=== PATIENT | male | born 1955 | race Caucasian/White ===

== ENCOUNTER → 2017-10-18 | Outpatient (REF) ==
[~2017-10-18] MED LIST: ACET-2031 PO; LACT1CAP6 PO; METF-410 PO; OMEP-114 PO; [UNRECOGNIZED DRUG - CODE] PO
--- NOTE | 2017-10-18 17:08 | RADIOLOGY IMAGING REPORT ---
[place] [facility] [place] NAME: Chapo Ceron : 1955 MR: [id number] V: [id number] EXAM DATE: ORDERING PHYSICIAN: SERJIO ARNETT TECHNOLOGIST: Location: [facility] - [place] Patient: Chapo Ceron : 1955 Visit/Account:[id number] Date of Sevice: 10/18/2017 CAROTID HISTORY: Multiple strokes COMPARISON: None. FINDINGS: Grayscale, duplex and color Doppler interrogation of the extracranial carotid and vertebral arteries was performed bilateral. On the right, peak systolic velocities within the common and internal carotid arteries are 118 and 85 .5 cm/sec respectively. There is mild intimal thickening in the right common carotid artery right ca rotid bulb. Antegrade flow within the common, internal and external carotid arteries as well as vert ebral artery. ICA/CCA ratio 0.7. On the left, peak systolic velocities within the common and internal carotid arteries are 111 and 97 cm/sec respectively. There is mild intimal thickening left common carotid artery left carotid bulb. Antegrade flow within the common, internal and external carotid arteries as well as vertebral artery . ICA/CCA ratio 1. IMPRESSION: There is a mild amount of intimal thickening in the common carotid arteries and carotid bulbs althoug h no hemodynamically significant lesions identified Velocity criteria are extrapolated from diameter data as defined by the Society of Radiologists in Ul trasound Consensus Conference Radiology 2003; 229;340-346 Report Dictated By: Dona Parish MD at 10/18/2017 4:41 PM Report E-Signed By: Dona Parish MD at 10/18/2017 4:51 PM WSN:[id number]
--- NOTE | 2017-10-19 17:34 | RADIOLOGY IMAGING REPORT ---
FACILITY: [facility] PATIENT NAME: BRYANT GANT : [id number] MR: [id number] V: [id number] EXAM DATE: ORDERING PHYSICIAN: SERJIO ARNETT TECHNOLOGIST: Kinga Gong EXAMINATION:TWO-DIMENSIONAL ECHOCARDIOGRAPH REASON: MULTIPLE STROKES AND OTHER CARDIO VASCULAR EVENTS. 2D Measurements (normal values in centimeters) LV endLV endRV endVent.LV PostAorticLeftPercent DiastolicSystolicDiastolicSeptumWallRootAtriumShortening (3.5-5.7)(0.9-2.6)(0.6-1.1)(0.6-1.1)(2.0-3.7)(1.9-4.0)(25-35%) [id number] STROKE VOLUME: 36ml ESTIMATED EJECTION FRACTION: 64% PARASTERNAL LONG AXIS: Overall left ventricular systolic function does appear to be normal. No specific wall motion abnormalities are noted. Chamber sizes appear to be normal. Aortic valve and mitral valve both appear to open normally. PARASTERNAL SHORT AXIS: Overall left ventricular function again appears to be normal. No specific wall motion abnormalities are noted. The aortic valve appears to be trileaflet in configuration. Trace of pulmonic insufficiency is noted. Color examination of the aortic valve was unremarkable. APICAL FOUR AND TWO CHAMBER: Trace amount of tricuspid insufficiency and mitral insufficiency is noted. The left ventricular systolic function appears to be normal. Aortic valve area and mitral area both measure within normal ranges of 2.4 and 2.6cm2 respectively. Left atrial right atrial volume is measured within normal range of 12 and 13ml/2. The tricuspid regurgitation Vmax measured 2.77m/sec with an estimated right atrial pressure of 3mm Hg. The TAPSE is measured within normal range of 2.4 indicating normal right ventricular function. Agitated saline bubble contrast study was done. No atrioseptal or ventriculoseptal defects were appreciated. No thrombi are noted in any of the chambers but the left atrial appendage is not seen. SUBCOSTAL VIEW: No pericardial effusion was noted. No atrioseptal or ventriculoseptal defects were noted. Doppler examination of the mitral valve and diastole does reveal the A wave > E wave. OVERALL IMPRESSION: 1. Normal left ventricular ejection fraction 64% with Grade 1/ 4 decrease in diastolic function. 2. Normal chamber sizes. 3. Trileaflet aortic valve with no abnormalities. 4. A trace of mitral, tricuspid and pulmonic insufficiency with normal right ventricular systolic pressures. 5. No atrioseptal or ventriculoseptal defects were noted and an agitated saline bubble contrast study was done. 6. No thrombi were noted in any of the chambers but the left atrial appendage was not seen. Dictated by: Melanie Coats M.D. on 10/18/2017 at 21:29 Transcribed by: CHIKI on 10/19/2017 at 14:31 Approved by: Melanie Coats M.D. on 10/19/2017 at 17:33 [facility]
== END ==
LOC: US 01:00
PROVIDERS: ATTEND Family Medicine
DX: E11.9 Type 2 diabetes mellitus without complications (principal); Z86.73 Personal history of transient ischemic attack (TIA), and cerebral infarction without residual deficits
CPT/HCPCS: 93306; 93880

== ENCOUNTER 2019-03-30 12:30 | Emergency (ER) | payer BC, MEDICARE ==
[~2019-03-30 12:30] MED LIST changes: -METF-410 PO; +METF-450 PO; +[UNRECOGNIZED DRUG - CODE] PO; -[UNRECOGNIZED DRUG - CODE] PO
--- NOTE | 2019-03-30 12:33 | ER Report ---
History and Physical Time Seen By MD: 12:26 HPI/ROS CHIEF COMPLAINT: left sided numbness HISTORY OF PRESENT ILLNESS: PT states that at 11 am he started with left sided numbness. Feels it on side of his face and left arm and leg. Pt has no weakness. Pt also feels off balance and dizzy. Pts gait is normal. Pt states he had a cva 2 years ago but denies ever having any weakness with prior stroke. PT is not on an aspirin or any other blood thinner. Pt does states he has DM . no sob. no nausa. no headache REVIEW OF SYSTEMS: Constitutional: No fever, no chills. Eyes: No discharge. ENT: No sore throat. Cardiovascular: No chest pain, no palpitations. Respiratory: No cough, no shortness of breath. Gastrointestinal: No abdominal pain, no vomiting. Genitourinary: No hematuria. Musculoskeletal: No back pain. Skin: No rashes. Neurological: No headache. Left sided numbness Allergies: Coded Allergies: No Known Drug Allergies (Unverified , 07/06/15) Home Meds Reported Medications Lactobacillus Combination No.4 (PROBIOTIC) 1 Each Capsule, 1 EACH PO QDAY, CAPSULE 07/17/15 Omeprazole (PRILOSEC) 20 Mg Capsule.dr, 1 TAB PO QDAY, TAB 07/17/15 Acetaminophen (ACETAMINOPHEN) 325 Mg Tablet, 325 MG PO PRN PRN for PAIN, TAB 07/06/15 Metformin Hcl (METFORMIN HCL) 500 Mg Tablet, 2 TAB PO QDAY, TAB 07/06/15 Past Medical/Surgical History Pmhx; cva, gerd, dm Hx Smoking: Yes (1/2 ppd x40+yrs) Smoking Status: Current: Every Day Smoker Hx Alcohol Use: Yes Constitutional Vital Sign - Last 24 Hours 03/30/19 03/30/19 03/30/19 03/30/19 12:34 12:47 13:00 13:30 Temp 98.2 Pulse 93 68 59 Resp 18 7 11 B/P (MAP) 151/88 138/77 (97) 126/74 (91) 119/69 (86) Pulse Ox 92 88 91 O2 Delivery Room Air Physical Exam General Appearance: The patient is alert, has no immediate need for airway protection and no signs of toxicity. Eyes: Pupils equal and round no pallor or injection, EOMI ENT: no pharyngeal erythema or exudates, Mucous membranes are moist, TM are nl b/l Respiratory: There are no retractions, lungs are clear to auscultation. Cardiovascular: Regular rate and rhythm. pulses are equal and symmetrical Gastrointestinal: Abdomen is soft and non tender, no masses, bowel sounds normal, no guarding, no rigidity or rebound Neurological: Cranial nerves II-XII grossly intact, no rmotor loss or sensory loss; upper and lower strength 5/5. No pronator drift or dysmetria Skin: Warm and dry, no rashes. Musculoskeletal: Neck is supple non tender, no vertebral tenderness Extremities are nontender, nonswollen and have full range of motion. NIH Stroke Scale: Level of consciousness: Alert -0 Answers both questions correctly-0 Performs both tasks correctly-0 Best Gaze: Normal-0 Visual: No visual loss-0 Facial Palsy: Normal, symmetrical movements-0 Motor Left Arm: No drift for 10 seconds-0 Motor Right Arm: No drift for 10 seconds-0 Motor Left Leg: No drift for 5 seconds-0 Motor Right Leg: No drift for 5 seconds-0 Limb Ataxia: Absent-0 Sensory: Normal, no sensory loss-0 Best Language: Normal, no aphasia-0 Dysarthria: Normal-0 Extinction and Inattention: No abnormality-0 DIFFERENTIAL DIAGNOSIS: After history and physical exam differential diagnosis was considered for cva, electrolyte abnl Medical Decision Making Data Points Result Diagram: 03/30/19 1237 03/30/19 1237 Laboratory Hematology Test 03/30/19 12:37 White Blood Count 7.1 k/uL (4.5-11.0) Red Blood Count 4.75 M/uL (4.00-5.60) Hemoglobin 17.3 g/dL (14.0-18.0) Hematocrit 49.2 % (42.0-52.0) Mean Corpuscular Volume 103.5 fL (80.0-96.0) H Mean Corpuscular Hemoglobin 36.4 pg (26.0-33.0) H Mean Corpuscular Hemoglobin Concent 35.2 g/dL (32.0-36.0) Red Cell Distribution Width 13.5 % (11.5-14.5) Platelet Count 290 K/uL (150-450) Mean Platelet Volume 7.5 fL (7.2-11.1) Neutrophils (%) (Auto) 40.8 % (39.4-72.5) Lymphocytes (%) (Auto) 41.5 % (17.6-49.6) Monocytes (%) (Auto) 10.9 % (4.1-12.4) Eosinophils (%) (Auto) 3.3 % (0.4-6.7) Basophils (%) (Auto) 3.5 % (0.3-1.4) H Nucleated RBC Relative Count (auto) 0.1 /100WBC Neutrophils # (Auto) 2.9 K/uL (2.0-7.4) Lymphocytes # (Auto) 2.9 K/uL (1.3-3.6) Monocytes # (Auto) 0.8 K/uL (0.3-1.0) Eosinophils # (Auto) 0.2 K/uL (0.0-0.5) Basophils # (Auto) 0.2 K/uL (0.0-0.1) H Nucleated RBC Absolute Count (auto) 0.01 K/uL Chemistry Test 03/30/19 00:00 03/30/19 12:36 03/30/19 12:37 Magnesium Level 2.1 mg/dl (1.7-2.2) Whole Blood Glucose 97 mg/DL (75-110) Sodium Level 137 mmol/L (137-145) Potassium Level 3.7 mmol/L (3.5-5.0) Chloride Level 104 mmol/L (98-107) Carbon Dioxide Level 22 mmol/L (22-30) Blood Urea Nitrogen 14 mg/dl (9-21) Creatinine 0.90 mg/dl (0.66-1.25) Glomerular Filtration Rate Calc > 60.0 Random Glucose 102 mg/dl (75-110) Calcium Level 10.4 mg/dl (8.4-10.2) Total Bilirubin 0.5 mg/dl (0.2-1.3) Aspartate Amino Transf (AST/SGOT) 34 U/L (0-35) Alanine Aminotransferase (ALT/SGPT) 51 U/L (0-56) Alkaline Phosphatase 62 U/L (0-126) Troponin I < 0.012 ng/ml Total Protein 8.0 g/dl (6.3-8.2) Albumin 4.6 g/dl (3.5-5.0) Coagulation Test 03/30/19 12:37 Prothrombin Time 12.3 seconds (12.0-14.4) Prothromb Time International Ratio 0.91 Activated Partial Thromboplast Time 30 seconds (23-35) Toxicology Test 03/30/19 00:00 Serum Alcohol < 10 mg/dl EKG/Imaging EKG Interpretation nsr @ 80 with no acute interval or sgemntal changes ED Course/Re-evaluation Clinical Indication for ER IV: IV Access ED Course Labs and CT. If CT is normal pt will require MRI. 03/30/2019 1:08:[address] is stable. Would like to send pt for MRI/MRA however pt is very nervious about the machine "last time I was in that machine it made me dizzy. I could not stand for almost an hour" PT is agreeable to MRI if I premedicate so that he does not get dizzy. I will give ativan since benzos help with dizziness as well as anxiety. Did repeat Neuro exam and pts scale score still zero. Pt is not a lytic candidate due to stroke score. ill give asa Decision to Disposition Date: Mar 30, 2019 Decision to Disposition Time: 16:07 Depart Departure Latest Vital Signs Vital Signs Date Time Temp Pulse Resp B/P (MAP) Pulse Ox O2 Delivery O2 Flow Rate FiO2 03/30/19 13:30 59 11 119/69 (86) 91 03/30/19 12:34 98.2 Room Air Impression: Primary Impression: Numbness Condition: Improved Disposition: HOME OR SELF-CARE Referrals: SHAHANA LEMONS (PCP) 2 Days DAVI HINKLE MD Neurologist. Call office on Monday to schedule an appointment. She does come to [facility] once a month or you may travel to [place] Patient Instructions: GENERAL ER DISCHARGE INSTRUCTIONS Additional Instructions: Your imaging of your head (cat scan and MRI) did not show an acute stroke. I do recommend you take a daily aspirin. You can take a full 325mg or if you have hx of stomach ulcers you may go to 81mg daily or enteric coated. Follow up with neurology as an out patient. CELESTINA RODRIGUES DO Mar 30, 2019 12:33
[2019-03-30 12:50] LABS: PLATELET COUNT, AUTOMATED 290 K/uL (150-450)
[2019-03-30] MEDS ORDERED: LORazepam 2 MG/ML VIAL IVP ONE (13:15)
[2019-03-30 13:22] LABS: INR 0.91
--- NOTE | 2019-03-30 13:22 | RADIOLOGY IMAGING REPORT ---
FACILITY: [facility] - [place] PATIENT NAME: Chapo Ceron : 1955 MR: [id number] V: [id number] EXAM DATE: ORDERING PHYSICIAN: CELESTINA RODRIGUES TECHNOLOGIST: Location: [facility] Patient: Chapo Ceron : 1955 Visit/Account:[id number] Date of Sevice: 03/30/2019 EXAMINATION: Head CT without intravenous contrast HISTORY: Left-sided numbness and tingling. History of stroke. COMPARISON: None. TECHNIQUE: Contiguous axial images were obtained from the skull base to the vertex without intraven ous contrast. Sagittal and coronal reformatted images are also submitted. One of the following dose optimization techniques was utilized in the performance of this exam: Autom ated exposure control; adjustment of the mA and/or kV according to the patient's size; or use of an i terative reconstruction technique. Specific details can be referenced in the facility's radiology C T exam operational policy. FINDINGS: Brain and intracranial structures: Ventricles, sulci, and cisterns are normal in size. Taylor-white ma tter differentiation is maintained. There is a chronic lacunar infarct in the left caudate nucleus. No midline shift, acute hemorrhage, mass, or evidence of acute infarct. Vessels: Calcified plaque of the carotid siphons. Calvarium / scalp: Negative. Skull base / visualized face: Negative. Visualized sinuses / orbits: Mild patchy mucosal thickening in the ethmoid air cells. IMPRESSION: No acute intracranial hemorrhage or evidence of acute infarct. If continued clinical concern for acut e infarct, MRI of the brain could be considered for further evaluation. Chronic lacunar infarct in the left caudate nucleus. These findings on the noncontrast head CT were discussed with CELESTINA RODRIGUES at 03/30/2019 1:08 PM. Report Dictated By: Zuhair Orona MD at 03/30/2019 12:57 PM Report E-Signed By: Zuhair Orona MD at 03/30/2019 1:14 PM WSN:[id number]
[2019-03-30] MEDS ORDERED: ASPIRIN 325 MG TAB PO ONE (13:25)
[2019-03-30 13:30] VITALS: BP 119/69
[2019-03-30] MEDS ORDERED: GADOBENATE 529MG/1ML 15ML VIAL IVP ONE (13:51)
[2019-03-30] MEDS ORDERED: NS(*) 0.9% 50 ML BAG 50 ML ONE (13:51)
--- NOTE | 2019-03-30 14:31 | EKG ---
FACILITY: [facility] - [place] PATIENT NAME: BRYANT GANT : [id number] MR: [id number] V: [id number] EXAM DATE: ORDERING PHYSICIAN: CELESTINA RODRIGUES TECHNOLOGIST: Test Reason : numbness left side Blood Pressure : / mmHG Vent. Rate : 079 BPM Atrial Rate : 079 BPM P-R Int : 138 ms QRS Dur : 086 ms QT Int : 378 ms P-R-T Axes : 055 051 057 degrees QTc Int : 433 ms Normal sinus rhythm with sinus arrhythmia Normal ECG No previous ECGs available Confirmed by JEMMA THORNE ([id number]) on 03/31/2019 4:36:24 AM Referred By: Confirmed By:JEMMA THORNE
--- NOTE | 2019-03-30 15:04 | RADIOLOGY IMAGING REPORT ---
FACILITY: [facility] PATIENT NAME: Chapo Ceron : 1955 MR: [id number] V: [id number] EXAM DATE: ORDERING PHYSICIAN: CELESTINA RODRIGUES TECHNOLOGIST: Location: [facility] - [place] Patient: Chapo Ceron : 1955 Visit/Account:[id number] Date of Sevice: 03/30/2019 EXAMINATION: MRA of the [place] HISTORY: Left-sided numbness and weakness, dizziness COMPARISON: None. TECHNIQUE: 3D vtzn-xy-[id number] angiography was performed in the axial plane on the [place] without IV chavez olinium. The exam was tailored for assessment of the [place] only. Only limited sequences were [place] of the rest of the brain. FINDINGS: Carotids: Negative. Anterior/posterior communicating arteries: Negative. Anterior cerebral arteries: Negative. Middle cerebral arteries: Negative. Posterior cerebral arteries: origins of the bilateral posterior cerebral arteries, normal varia nt. Intracranial vertebral arteries: The left vertebral artery is diminutive. The right vertebral artery is widely patent. Basilar artery: Negative. PICA/AICA/SCA: Negative. Non-angiographic Findings: None significant. IMPRESSION: Unremarkable MRA of the [place] of [place]. Report Dictated By: EFREM RAGLAND at 03/30/2019 2:51 PM Report E-Signed By: EFREM RAGLAND at 03/30/2019 2:55 PM WSN:[email or web address]
--- NOTE | 2019-03-30 15:12 | RADIOLOGY IMAGING REPORT ---
FACILITY: [facility] PATIENT NAME: Chapo Ceron : 1955 MR: [id number] V: [id number] EXAM DATE: ORDERING PHYSICIAN: CELESTINA RODRIGUES TECHNOLOGIST: Location: [facility] [place] Patient: Chapo Ceron : 1955 Visit/Account:[id number] Date of Sevice: 03/30/2019 EXAMINATION: Brain MRI without IV contrast HISTORY: Left-sided numbness/weakness. Dizzy. COMPARISON: CT of the head from the same day. TECHNIQUE: Multi-planar, multi-sequence brain MRI was performed without IV contrast administration. FINDINGS: Brain and other intracranial structures: Ventricles and sulci are normal in size. There are a few pa tchy T2 hyperintense foci scattered within the cerebral white matter and the majo. Chronic lacunar in farct in the left caudate nucleus. Small chronic infarct in the right cerebellar hemisphere. No midline shift, mass, hemorrhage, or acute infarct. Calvarium / scalp: Negative. Skull base: Negative. Visualized sinuses / orbits: Mild mucosal thickening in the ethmoid air cells and right maxillary si nus. IMPRESSION: No acute intracranial abnormality. No acute infarct. Mild burden of small T2 hyperintense foci scattered in the white matter, likely chronic small vessel ischemic changes. Chronic lacunar infarcts in the left caudate nucleus and right cerebellar hemisphere. Report Dictated By: Zuhair Orona MD at 03/30/2019 2:59 PM Report E-Signed By: Zuhair Orona MD at 03/30/2019 3:05 PM WSN:[id number]
[2019-03-30] MEDS ORDERED: THIAMINE HCL 100 MG TAB PO ONE (15:35)
--- NOTE | 2019-03-30 16:09 | RADIOLOGY IMAGING REPORT ---
FACILITY: [facility] - [place] PATIENT NAME: Chapo Ceron : 1955 MR: [id number] V: [id number] EXAM DATE: ORDERING PHYSICIAN: CELESTINA RODRIGUES TECHNOLOGIST: Location: [facility] Patient: Chapo Ceron : 1955 Visit/Account:[id number] Date of Sevice: 03/30/2019 EXAMINATION: MRA of the neck without IV contrast MRA of the neck with IV contrast HISTORY: Left-sided numbness/weakness. Dizzy. COMPARISON: None. TECHNIQUE: A preliminary fat suppressed axial sequence was obtained in the mid-upper neck (for asses sment of dissection) followed by non-gadolinium enhanced 3D-time of flight angiography in the axial p toya on the carotid bifurcations. The patient received a bolus of intravenous gadolinium during which coronal 3D-time of flight angiography was performed from the aortic arch through the grand traverse of Willi s. 3D and 2D sagittal and coronal reformatted images were obtained form the source data. [employer] images have been stored on PACS. Stenosis of the internal carotid arteries are calculated using RABIA CET criteria. Contrast: 15 mL of IV MultiHance FINDINGS: Angiographic Findings: Aortic arch/great vessel origins: Negative. Right CCA/ICA: Negative. 0% stenosis of the origin of the right ICA. Left CCA/ICA: Negative. There are percent stenosis of the origin of the left ICA. Vertebrobasilar: Negative. The right vertebral artery is dominant. [place] of [place]: Negative. Non-angiographic Findings: Multilevel disc and facet degenerative changes in the cervical spine. IMPRESSION: Normal MRA of the neck. Report Dictated By: Zuhair Orona MD at 03/30/2019 3:38 PM Report E-Signed By: Zuhair Orona MD at 03/30/2019 4:01 PM WSN:[id number]
== END 2019-03-30 16:19 | disposition home or self-care (01) ==
LOC: ER 12:33
DX: R20.0 Anesthesia of skin (principal); I49.9 Cardiac arrhythmia, unspecified
CPT/HCPCS: 36416; 70450; 70544; 70549; 70551; 82948; 83735; 84484; 85025; 85610; 85730; 93005; 96374; 99284; A9270; A9577; G0480; J2060; J7050; 80320; 82040; 82247; 82310; 82374; 82435; 82565; 82947; 84075; 84132; 84155; 84295; 84450; 84460; 84520